=== PATIENT | female | born 1975 | race Caucasian/White ===

== ENCOUNTER 2016-08-14 15:32 | Emergency (ER) | payer BC ==
--- NOTE | 2016-08-14 16:33 | Emergency Department Record ---
History of Present Illness - General Chief Complaint: Fever Stated Complaint: FEVER, POSS DUE TO CELLULITIS Time Seen by Provider: 08/14/16 16:28 Source: Patient Mode of Arrival: Ambulatory Limitations: No limitations - History of Present Illness Initial Comments: 40 yo female presents with fever and chills that started last night. She denies any other symptoms. She is on Bactrim for a left second toe infection. The foot and toe site of infection are much improved. Her Tmax at 5am was 100- 101. No NVD. No rash. No cough or sore throat. No history of a murmur. No history of immune suppression. Complaint: Fever Onset/Timin -: Days(s) Maximum Temperature: 101 F Temperature Source: Tympanic Context: Other Associated Symptoms: Chills Treatments Prior to Arrival: None - Related Data Previous Rx's Medication Instructions Recorded Cephalexin [Keflex] 500 mg PO QID #28 cap 08/14/16 Allergies Allergy/AdvReac Type Severity Reaction Status Date / Time No Known Drug Allergies Allergy Unverified 08/10/16 15:53 Travel Screening - Travel/Exposure Within Last 30 Days Have you traveled within the last 30 days?: No Review of Systems Constitutional: Reports: Chills, Fever. Denies: Malaise, Night sweats, Weakness Eyes: Denies: Eye discharge, Eye pain, Photophobia, Vision change ENT: Denies: Congestion, Throat pain Respiratory: Denies: Cough, Dyspnea, Hemoptysis, Stridor, Wheezes Cardiovascular: Denies: Chest pain, Palpitations, Syncope Endocrine: Denies: Fatigue, Polydipsia, Polyuria Gastrointestinal: Denies: Abdominal pain, Diarrhea, Nausea, Vomiting Genitourinary: Denies: Dysuria, Urgency Musculoskeletal: Reports: As per HPI, Joint swelling. Denies: Arthralgia, Back pain, Neck pain Skin: Reports: As per HPI, Change in color, Rash Neurological: Denies: Confusion, Headache Psychiatric: Denies: Anxiety Hematological/Lymphatic: Denies: Blood Clots, Easy bleeding, Easy bruising, Swollen glands Past Medical History - SOCIAL HISTORY Smoking Status: Current every day smoker Alcohol Use: None Drug Use: None - RESPIRATORY Hx Respiratory Disorders: No - CARDIOVASCULAR Hx Cardio Disorders: No - NEURO Hx Neuro Disorders: No - GI Hx GI Disorders: No - Hx Genitourinary Disorders: No - ENDOCRINE Hx Endocrine Disorders: No - MUSCULOSKELETAL Hx Musculoskeletal Disorders: Yes Hx Arthritis: Yes - PSYCH Hx Psych Problems: Yes Hx Anxiety: Yes Hx Depression: Yes - HEMATOLOGY/ONCOLOGY Hx Hematology/Oncology Disorders: Yes Hx Anemia: Yes Family Medical History Any Significant Family History?: No Physical Exam - General General Appearance: Alert, Oriented x3, Cooperative, No acute distress Limitations: No limitations - Head Head exam: Atraumatic, Normocephalic, Normal inspection - Eye Eye exam: Normal appearance, PERRL. negative: Conjunctival injection, Scleral icterus - ENT ENT exam: Normal exam, Mucous membranes moist Ear exam: Normal external inspection. negative: External canal tenderness Nasal Exam: Normal inspection. negative: Discharge, Sinus tenderness Mouth exam: Normal external inspection, Tongue normal Teeth exam: Normal inspection. negative: Dental caries Throat exam: Normal inspection. negative: Tonsillar erythema, Tonsillomegaly, Tonsillar exudate, R peritonsillar mass, L peritonsillar mass - Neck Neck exam: Normal inspection, Full ROM. negative: Lymphadenopathy, Tenderness - Respiratory Respiratory exam: Normal lung sounds bilaterally. negative: Decreased breath sounds, Respiratory distress, Rhonchi, Stridor, Wheezes - Cardiovascular Cardiovascular Exam: Regular rate, Normal rhythm, Normal heart sounds. negative : Diastolic murmur, Systolic murmur - GI/Abdominal GI/Abdominal exam: Soft. negative: Guarding, Tenderness - Rectal Rectal exam: Deferred - exam: Deferred - Extremities Extremities exam: Full ROM, Joint swelling (left 2nd toe with redness, no fluctuance, no spreading lymphangitis, full ROM, much improved from the initial site that was up to mid foot, no involvment of foot), Normal capillary refill. negative: Normal inspection, Calf tenderness, Tenderness - Back Back exam: Reports: Normal inspection, Full ROM. Denies: Muscle spasm, Rash noted, Tenderness - Neurological Neurological exam: Alert, Normal gait, Oriented X3 - Psychiatric Psychiatric exam: Normal affect, Normal mood. negative: Agitated, Anxious - Skin Skin exam: Erythema (as noted above regarding the toe) Course Vital Signs 08/14/16 16:12 Temperature 98.3 F Pulse Rate 110 H Respiratory 16 Rate Blood Pressure 127/78 Pulse Ox 97 - Reevaluation(s) Reevaluation #1: The labs were reviewed WBC 3.7 with 78% neutrophils. CRP 3.4 No other acute changes Keflex will be added to her Bactrim She is afebrile in the ED The patient is to return if the fevers return or any new symptoms develop She is to call her PCP Monday for close followup this week to review the labs and cultlure and to repeat the CBC and CRP Culture is pending 08/14/16 18:06 08/14/16 18:38 Reevaluation #2: UA is negative 08/14/16 18:38 Medical Decision Making - Lab Data Result diagrams: 08/14/16 16:46 08/14/16 16:46 Disposition Disposition: Discharge Clinical Impression: Fever Qualifiers: Fever type: unspecified Qualified Code(s): R50.9 - Fever, unspecified Cellulitis Qualifiers: Site of cellulitis: extremity Site of cellulitis of extremity: toe Laterality: left Qualified Code(s): L03.032 - Cellulitis of left toe Disposition: Home, Self-Care Condition: (1) Good Instructions: Fever in Adults (ED), Cellulitis (ED) Additional Instructions: Return to the ER if you have any more fevers or any new symptoms that you are not having at this time Call your doctor Jessi for very close follow up and recheck of your lab tests (CBC and CRP) Add Keflex 4 times daily to your medications Prescriptions: Cephalexin [Keflex] 500 mg PO QID #28 cap Forms: Patient Portal Access Time of Disposition: 18:09
[2016-08-14] MEDS ORDERED: CEPHALEXIN 500 MG CAPSULE PO STA (16:36)
[2016-08-14 16:52] LABS: BASO % 1.4 % (0-6); HEMATOCRIT 38.2 % (35.0-47.0); HEMOGLOBIN 13.3 gm/dl (11.6-16.0); LYMPH % 8.8 % (16-45); MEAN CELL VOLUME 86.2 fl (81-97); MEAN CORPUSCULAR HGB CONC 34.8 g/dl (32-36); MEAN PLATELET VOLUME 10.8 fl (7.4-10.4); MONO % 8.8 % (0-9); PLATELET COUNT 206 K/uL (130-400); RED BLOOD COUNT 4.43 M/uL (3.80-5.40); RED CELL DISTRIBUTION WIDTH 12.9 % (11.5-14.5); WHITE BLOOD COUNT W/O DIFF 3.7 K/uL (4.2-12.2)
[2016-08-14 17:08] LABS: ANION GAP 10.9 (7-16); BLOOD UREA NITROGEN 11 mg/dL (7-17); C-REACTIVE PROTEIN 3.5 mg/dL (0.0-0.9); CARBON DIOXIDE 22.1 mmol/L (22-30); EST GLOMERULAR FILTRATION RATE > 60 ml/min; GLUCOSE,RANDOM 109 mg/dL (70-110)
[2016-08-14 18:15] LABS: URINE APPEARANCE CLEAR; URINE BILIRUBIN NEGATIVE (NEGATIVE); URINE BLOOD NEGATIVE (NEGATIVE); URINE COLOR YELLOW; URINE GLUCOSE (UA) NEGATIVE (NEGATIVE); URINE KETONE NEGATIVE (NEGATIVE); URINE LEUKOCYTE ESTERASE NEGATIVE (NEGATIVE); URINE NITRITE NEGATIVE (NEGATIVE); URINE PROTEIN NEGATIVE (NEGATIVE); URINE UROBILINOGEN 0.2 E.U./dL (0.20 - 1.00)
== END 2016-08-14 18:35 | disposition home or self-care (01) ==
LOC: ER 15:32
DX: L03.032 Cellulitis of left toe (principal); R50.81 Fever presenting with conditions classified elsewhere
CPT/HCPCS: 80048; 81003; 85025; 86140; 99283

== ENCOUNTER 2018-10-25 11:29 | Day surgery (SDC) | payer BC ==
[2018-10-25] MEDS ORDERED: LIDOCAINE 2% MDV (20MG/ML) 20ML VIAL IV ONE (11:30)
[2018-10-25] MEDS ORDERED: FENTANYL PF 100MCG/2ML VIAL IV ONE (11:30)
[2018-10-25] MEDS ORDERED: PROPOFOL 10 MG/ML VIAL IV ONE (11:30)
--- NOTE | 2018-10-26 08:50 | Operative Note ---
DATE OF SURGERY: 10/25/2018 OPERATION: ESOPHAGOGASTRODUODENOSCOPY with biopsy. PREOPERATIVE DIAGNOSIS: Intractable heartburn and questionable dysphagia. POSTOPERATIVE DIAGNOSIS: Ringed esophagus, rule out EOE. PROCEDURE: After informed consent was obtained from the patient, she was placed in the left lateral decubitus position in the endoscopy suite, sedated and monitored by the department of anesthesia. Once sedated, a well-lubricated [id number] gastroscope was placed in the posterior oropharynx under direct visualization and passed to the proximal esophagus. The endoscope was advanced through the proximal, mid, and distal esophagus. The esophagus initially appeared unremarkable as did the GE junction. The gastric body, antrum, pylorus, duodenal bulb and sweep were unremarkable as well. J-turn views of the proximal stomach were unrevealing. No abnormalities were identified. The endoscope was then straightened. The distal esophagus again inspected and there appeared to be the presence of ringed-like changes. No longitudinal furrows were readily identified. Random mid and distal esophageal biopsies were obtained. No excessive bleeding was noted. The endoscope was removed from the patient with no new findings noted. RECOMMENDATIONS: The patient will continue her current medical program. We will await results of tissue histology. As always, thank you for allowing me to participate in the healthcare of your patients. CC: THADDEUS Hirsch
== END 2018-10-25 12:50 | disposition home or self-care (01) ==
LOC: HOP 11:29
PROVIDERS: ATTEND Internal Medicine Gastroenterology
DX: R12 Heartburn (principal); K22.2 Esophageal obstruction; K21.9 Gastro-esophageal reflux disease without esophagitis
CPT/HCPCS: 81025